=== PATIENT | female | born 1990 | race Caucasian/White ===

== ENCOUNTER 2017-11-03 11:34 | Emergency (ER) | payer OTHER ==
[2017-11-03 11:44] VITALS: O2SAT 97
[2017-11-03] MEDS ORDERED: KETOROLAC 30 MG/1 ML SDV IVP ONE (12:12)
[2017-11-03] MEDS ORDERED: NS 1,000 ML IV ONE (12:12)
[2017-11-03] MEDS ORDERED: METOCLOPRAMIDE 10 MG/2 ML VIAL IVP ONE (12:12)
--- NOTE | 2017-11-03 12:23 | EDPHY ---
H & P Stated Complaint: cough, SOB, loss of vision this am for 10 minutes Time Seen by Provider: 11/03/17 12:00 HPI/ROS: This patient reports vision changes with onset of right-sided headache today 2 hr prior to arrival lasted for 10 min. She describes scintillating scotoma and partial loss of vision that then gradual returned over 10 min. Time. This was followed by right more than left frontal throbbing headache similar to previous migraines currently 8/10 intensity, worse with movement and associated with photophobia. She denies any associated nausea at this time. She took 600 mg of ibuprofen this morning at 7:00 a.m. Has had no medications since that time. She also complains of a cough for 2 and half weeks duration and thinks she has bronchitis citing a burning discomfort when she coughs. She has associated nasal congestion. ROS: No fevers or chills. No other constitutional symptoms HEENT: Mild sore throat. No ear pain. No sinus pain. Pulmonary: No pleuritic pain. No hemoptysis. Cardiovascular: No chest pain at baseline heart palpitations. No leg swelling. GI: No nausea vomiting or diarrhea. No abdominal pain. : No urinary symptoms. She is amenorrheic since having explanon implant Integumentary: No rash Neuro: No focal numbness tingling weakness or confusion. No neck stiffness. 10 point ROS is otherwise negative. Source: Patient Exam Limitations: No limitations - Personal History LMP (Females 10-55): Extended Cycle BCP/Inj Current Tetanus Diphtheria and Acellular Pertussis (TDAP): Yes Tetanus Vaccine Date: < 10 years - Medical/Surgical History Hx Asthma: No Hx Chronic Respiratory Disease: No Hx Diabetes: No Hx Cardiac Disease: No Hx Renal Disease: No Hx Cirrhosis: No Hx Alcoholism: No Hx HIV/AIDS: No Hx Splenectomy or Spleen Trauma: No Other PMH: appy, bronchitis yearly,. Reactive airway disease, occasional migraine headaches that she has never sought medical treatment for this. Family history of mother and sister with migraines - Family History Significant Family History: Other (Mother and sister have migraines) - Social History Smoking Status: Never smoked Alcohol Use: Occasionally Drug Use: None - Physical Exam Exam: Physical exam: Vital signs are normal General: Patient is in no acute distress. HEENT: Is no external evidence of trauma on exam. Eyes: Pupils are equal and reactive to light. Extraocular motions are intact. Optic fundi: Clear with no papilledema or hemorrhage. Ears: Clear bilaterally with no hemotympanum. Oropharynx: No dental trauma or malocclusion. No intraoral lacerations. Nose : Clear discharge bilaterally. No sinus tenderness to percussion. Eyes: Pupils are equal and reactive to light. Extraocular motions are intact. Optic fundi: Clear with no papilledema or hemorrhage. Lungs: Mild expiratory wheeze bilaterally. Minimal rhonchi. No rales. Neck: Supple no meningismus. Cardiac: Regular rate and rhythm no murmur gallop or rub. Abdomen: Soft nontender no organomegaly Neuro: GCS of 15. Cranial nerves II through XII intact. Cerebellar exam is normal as judged by symmetric rapid hand movements bilaterally. No pronator drift. No sensory or motor deficits are appreciated. Initial differential diagnosis: Migraine, tension headache, [employer] lesion, intracranial bleed, URI with cough and reactive airway disease, bronchitis Constitutional: Initial Vital Signs Temperature (C) 36.8 C 11/03/17 11:39 Heart Rate 80 11/03/17 11:39 Respiratory Rate 18 11/03/17 11:39 Blood Pressure 139/89 H 11/03/17 11:39 O2 Sat (%) 97 11/03/17 11:39 O2 Delivery Mode Room Air Allergies/Adverse Reactions: hydrocodone [From Vicodin] Allergy (Verified 11/03/17 11:45) Vomiting Home Medications: Medication Instructions Recorded 12 Hour Decongestant 11/03/17 Albuterol Hfa Anes Only [Proair 2 puffs IH Q4 PRN #1 mdi 11/03/17 Hfa Icu (*)] Allergy Shots 11/03/17 Azithromycin [Zithromax] 250 mg PO DAILY #6 tab 11/03/17 Fluticasone Hfa 220 Mcg [Flovent 2 puffs IH DAILY #1 mdi 11/03/17 220 MCG Hfa MDI (*)] SUMAtriptan [Imitrex 50 MG (RX)] 50 - 100 mg PO Q2H PRN #6 tab 11/03/17 Medical Decision Making - Diagnostics Imaging Results: Imaging Impressions Chest X-Ray 11/03/17 12:01 Impression: Mild central bronchitis, otherwise negative chest.. ED Course/Re-evaluation: IV normal saline bolus, Reglan, Toradol and Benadryl IV With relief of her headache down to 2 3/10 at 1:35 p.m.. Patient feels significantly improved. I counseled regarding migraine headache. Discussion: Patient presents with classic migraine headache improved with treatment. I do not think she has [employer] infection or other complicating factors. She also has bronchitis with symptoms for 2 and half weeks. Given the duration of symptoms will treat with Zithromax antibiotic. By history she also has an element of reactive airway disease so will treat her with Flovent in addition to albuterol. Answered all her questions. The patient understands need to return should she develop any worsening symptoms despite treatment plan. Will provide follow-up with a on-call primary care physician as she is new to the area and needs a primary care physician. - Data Points Medications Given: Discontinued Medications Diphenhydramine HCl (Benadryl Injection) 25 mg IVP EDNOW ONE Stop: 11/03/17 12:13 Last Admin: 11/03/17 12:27 Dose: 25 mg Sodium Chloride (Ns) 1,000 mls @ 0 mls/hr IV ONCE ONE; Wide Open PRN Reason: Protocol Stop: 11/03/17 12:13 Last Admin: 11/03/17 12:31 Dose: 1,000 mls Ketorolac Tromethamine (Toradol) 30 mg IVP EDNOW ONE Stop: 11/03/17 12:13 Last Admin: 11/03/17 12:29 Dose: 30 mg Metoclopramide HCl (Reglan Injection) 10 mg IVP EDNOW ONE Stop: 11/03/17 12:13 Last Admin: 11/03/17 12:30 Dose: 10 mg Departure - Departure Disposition: Home, Routine, Self-Care Clinical Impression: Migraine headache with aura Qualifiers: Status migrainosus presence: without status migrainosus Intractability: not intractable Qualified Code(s): G43.109 - Migraine with aura, not intractable, without status migrainosus Acute bronchitis Qualifiers: Bronchitis organism: unspecified organism Qualified Code(s): J20.9 - Acute bronchitis, unspecified Condition: Good Instructions: Migraine Headache (ED), Acute Bronchitis (ED) Additional Instructions: Diagnosis: 1. Migraine headache 2. Acute bronchitis Plan: Humidifier Albuterol inhaler as needed for cough, wheeze or shortness of breath Flovent steroid inhaler in addition. Zithromax antibiotic. If you developed recurrent headache take ibuprofen and Imitrex and rest quietly. Call Dr. Ervin, -primary care physician to arrange follow-up appointment for recheck for any ongoing symptoms aren't improving with treatment plan Return for any significant worsening despite the treatment plan. Referrals: NONE *PRIMARY CARE P,. [Primary Care Provider] - As per Instructions Joi Ervin MD [Medical Doctor] - As per Instructions Prescriptions: Albuterol Hfa Anes Only [Proair Hfa Icu (*)] 2 puffs IH Q4 PRN #1 mdi PRN Reason: Wheezing Azithromycin [Zithromax] 250 mg PO DAILY #6 tab Fluticasone Hfa 220 Mcg [Flovent 220 MCG Hfa MDI (*)] 2 puffs IH DAILY #1 mdi SUMAtriptan [Imitrex 50 MG (RX)] 50 - 100 mg PO Q2H PRN #6 tab PRN Reason: migraine
[2017-11-03 13:54] VITALS: BP 132/91; PULSE 90; RESP 16; TEMP 98.1
== END 2017-11-03 13:55 | disposition home or self-care (01) ==
LOC: CED 11:34
DX: G43.109 Migraine with aura, not intractable, without status migrainosus (principal); J20.9 Acute bronchitis, unspecified; E86.9 Volume depletion, unspecified
CPT/HCPCS: 71046-PO; 96374; J1200; J1885; J2765